=== PATIENT | female | born 1945 | race Caucasian/White ===

== ENCOUNTER 2022-03-10 09:19 | Inpatient (IN) | payer MEDICARE, OTHER ==
[2022-03-10] VITALS (10 sets, daily range): BP systolic 99–142; BP diastolic 35–79
[~2022-03-10] VITALS: Ht 152.4 cm; Wt 116.6 kg
[2022-03-10] MEDS ORDERED: methylPREDNISolone SOD SUCC 125 MG/2 ML VIAL IV ONE (09:30)
[2022-03-10] MEDS ORDERED: ALBUTEROL SULFATE 2.5 MG/3 ML NEBU NEB ONE (09:30)
[2022-03-10] MEDS ORDERED: IPRATROPIUM BROMIDE 0.5 MG/2.5 ML NEBU NEB ONE (09:30)
--- NOTE | 2022-03-10 09:30 | NUR ---
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 STATES RESP. SYMPTOMS STARTED LAST NIGHT. ER MD AT BEDSIDE FOR MSE.
[2022-03-10] MEDS ORDERED: ALBUTEROL SULFATE 2.5 MG/3 ML NEBU ONE (09:37)
[2022-03-10] MEDS ORDERED: IPRATROPIUM BROMIDE 0.5 MG/2.5 ML NEBU ONE (09:37)
[2022-03-10] MEDS ORDERED: levoFLOXacin 500 MG/D5W 100ML PIGGYBACK IV ONE (09:45)
[2022-03-10 09:56] LABS: ABG BASE EXCESS 2.9 mmol/L; ABG HCO3 27.9 mmol/L; ABG PCO2 44.4 mmHg (35.0-45.0); ABG PH 7.416 (7.350-7.450); ABG PO2 87.1 mmHg (75.0-100.0); ABG SITE RIGHT BRACHIAL; ABG TOTAL HEMOGLOBIN 12.4 G/dL (12.0-16.0); COHb 1.4 % (0.5-1.5); MetHb 0.3 % (0.0-1.5); O2Hb 94.9 % (94.0-97.0); VENT MODE SM
--- NOTE | 2022-03-10 10:00 | NUR ---
PT ON BREATHING TX WITH IMPROVED O2 SAT TO 98%. HR CONTINUES TO BE TACHY. COMPLAINTS OF BALTAZAR 8/10 PRESSURE LIKE STARTED THIS AM
[2022-03-10] MEDS ORDERED: methylPREDNISolone SOD SUCC 125 MG/2 ML VIAL ONE (10:18)
[2022-03-10 10:22] LABS: HEMATOCRIT 35.8 % (31.2-41.9); MEAN CORPUSCULAR HEMOGLOBIN 32.5 uug (24.7-32.8); MEAN CORPUSCULAR VOLUME 99.5 fL (75.5-95.3); PLATELET COUNT (AUTO) 156 K/uL (179-408)
[2022-03-10 10:34] LABS: CARBON DIOXIDE 25 mmol/L (21-32); CHLORIDE 101 mmol/L (98-107); CREATININE 1.2 mg/dL (0.6-1.3); GLUCOSE 170 mg/dL (74-106); POTASSIUM 4.1 mmol/L (3.5-5.1); UREA NITROGEN, BLOOD 21 mg/dL (7-18)
[2022-03-10 10:55] LABS: ETHANOL < 3 MG/DL (0-0)
[2022-03-10] MEDS ORDERED: DILTIAZEM HCL 25 MG IV IV ONE (11:00)
[2022-03-10] MEDS ORDERED: DILTIAZEM HCL IV 125 MG in IV DEXTROSE 5% 100 ML IV ONE (11:00)
[2022-03-10] MEDS ORDERED: IV NORMAL SALINE 1000 ML BAG IV ONE (11:00)
[2022-03-10] MEDS ORDERED: ACETAMINOPHEN 650 MG/20.3 ML LIQUID UDC PO ONE (11:00)
--- NOTE | 2022-03-10 12:01 | NUR ---
PT RESPONDED TO DILTIAZEM BOLUS AND DILYIAZEM GTT AT 5MG/HR. VS MORE STABLE AT THIS TIME.
[2022-03-10 12:11] LABS: *AMPHETAMINE, URINE NEGATIVE (NEGATIVE); *CANNABINOID, URINE NEGATIVE (NEGATIVE); *COCCAINE, URINE NEGATIVE (NEGATIVE); *OPIATE, URINE NEGATIVE (NEGATIVE); *PHENCYCLIDINE SCREEN,URINE NEGATIVE (NEGATIVE)
--- NOTE | 2022-03-10 13:00 | NUR ---
CARDIZEM GTT TITRATED TO 10 MG; HR AT 133 AFIB RVR
[2022-03-10 13:06] LABS: BILIRUBIN,DIRECT 0.2 mg/dL (0.0-0.2); BILIRUBIN,TOTAL 0.5 mg/dL (0.2-1.0)
--- NOTE | 2022-03-10 13:30 | NUR ---
SBAR TO MAMIE MEDELLIN COVERING FOR LADONNA MEDELLIN.
--- NOTE | 2022-03-10 14:00 | NUR ---
PT TRANSFERRED TO ICU WITH ACLS PROTOCOL.
[2022-03-10] MEDS ORDERED: levoFLOXacin 500 MG/D5W 500 MG in PREMIXED 1 EACH IV SCH (17:15)
[2022-03-10] MEDS ORDERED: MORPHINE SULFATE 2 MG/1 ML DISP.SYRIN IV PRN (17:15)
[2022-03-10] MEDS ORDERED: ONDANSETRON 4 MG/2 ML VIAL IV PRN (17:15)
[2022-03-10] MEDS ORDERED: ACETAMINOPHEN 325 MG TABLET PO PRN (17:15)
[2022-03-10] MEDS ORDERED: AMIODARONE HCL IV 150 MG in IV DEXTROSE 5% 100 ML IV ONE (18:00)
[2022-03-10] MEDS: MEROPENEM 1 G in IV NORMAL SALINE 100 ML IV SCH (18:18)
[2022-03-10] MEDS ORDERED: RAMI5CAP30 PO (18:30)
[2022-03-10] MEDS ORDERED: METO50TA16 PO (18:30)
[2022-03-10] MEDS ORDERED: HYDR-894 PO (18:30)
[2022-03-10] MEDS ORDERED: APIX5TAB PO (18:30)
[2022-03-10] MEDS ORDERED: RANO10003 PO (18:30)
[2022-03-10] MEDS ORDERED: FLUT200B IH (18:30)
[2022-03-10] MEDS ORDERED: NITR0.4T SL (18:33)
[2022-03-10] MEDS: FLUTICASONE/VILANTEROL 1 EACH BLST.W.DEV INH SCH (18:35)
[2022-03-10] MEDS: AMIODARONE HCL IV 450 MG in IV DEXTROSE 5% 250 ML IV PRN (18:36)
[2022-03-10] MEDS: ENOXAPARIN SODIUM 120 MG/0.8 ML SYRINGE SQ SCH (21:00)
[2022-03-10] MEDS ORDERED: GUAIFENESIN/DEXTROMETHORPHAN 5 ML UDC PO PRN (21:15)
[2022-03-10] MEDS: methylPREDNISolone SOD SUCC 40 MG/ML VIAL IV SCH (21:57)
[2022-03-10] MEDS: DOCUSATE SODIUM 100 MG CAPSULE PO SCH (21:57)
[2022-03-11] VITALS (24 sets, daily range): BP systolic 127–177; BP diastolic 62–119
[2022-03-11] MEDS: AMIODARONE HCL IV 450 MG in IV DEXTROSE 5% 250 ML IV PRN (03:31)
[2022-03-11] MEDS: LEVALBUTEROL HCL NEB 0.63 MG/3 ML NEBU NEB PRN (04:26)
[2022-03-11 05:11] LABS: HEMATOCRIT 31.6 % (31.2-41.9); MEAN CORPUSCULAR HEMOGLOBIN 32.8 uug (24.7-32.8); MEAN CORPUSCULAR VOLUME 94.9 fL (75.5-95.3); PLATELET COUNT (AUTO) 173 K/uL (179-408)
[2022-03-11 05:43] LABS: THYROID STIMULATING HORMONE 0.328 mIU/mL (0.358-3.740)
--- NOTE | 2022-03-11 06:00 | NUR ---
[id number] PT A/OX4 WITH STABLE VS. PT HAS BEEN RESTING QUIETLY. PT HAS BEEN A/OX4. PT HAS BEEN SLEPING OFF AND. IVS I/P VIA RIGHT ARM PICC-LINE. PT REQUESTED F/C TO BE TAKE OUT. PT VOIDING WELL (1200 TOTAL) HECTOR/CLR. F/C REMOVED. PT HAD SM BRN STOOL. SKIN CARE GIVEN(ASST). PT ABLE TO MOVE ALL EXTREMITIES EQUALLY. AM LABS DONE PT PT IS ALSO BLIND BUT FOLLOWS SIMPLE COMMDS WELL AND IS A/OX4. PT ENDORSED TO VIGNESH BULLARD IN STABLE COND. LUCIA MEDELLIN
[2022-03-11 06:01] LABS: ALANINE AMINOTRANSFERASE 43 U/L (14-59); ALKALINE PHOSPHATASE 87 U/L (50-136); ASPARTATE AMINOTRANSFERASE 26 U/L (15-37); BILIRUBIN,TOTAL 0.6 mg/dL (0.2-1.0); CARBON DIOXIDE 29 mmol/L (21-32); CHLORIDE 99 mmol/L (98-107); CHOLESTEROL 164 mg/dL (<200); CREATININE 1.3 mg/dL (0.6-1.3); GLUCOSE 245 mg/dL (74-106); HDL CHOLESTEROL 60 mg/dL (40-60); MAGNESIUM 1.8 mg/dL (1.8-2.4); PHOSPHOROUS 3.4 mg/dL (2.5-4.9); POTASSIUM 4.3 mmol/L (3.5-5.1); TOTAL PROTEIN, SERUM 7.1 g/dL (6.4-8.2); TRIGLYCERIDES 67 MG/DL (30-150); UREA NITROGEN, BLOOD 29 mg/dL (7-18)
[2022-03-11] MEDS: PANTOPRAZOLE SODIUM 40 MG TABLET.DR PO SCH (07:23)
[2022-03-11] MEDS: methylPREDNISolone SOD SUCC 40 MG/ML VIAL IV SCH ×3 (07:23→21:15)
[2022-03-11] MEDS: MEROPENEM 1 G in IV NORMAL SALINE 100 ML IV SCH ×2 (07:24→18:44)
[2022-03-11] MEDS ORDERED: DEXTROSE 50% 50 ML DISP.SYRIN IV PRN (08:00)
[2022-03-11] MEDS ORDERED: CYANOCOBALAMIN 1000 MCG/ML VIAL IM ONE (08:00)
[2022-03-11] MEDS: ENOXAPARIN SODIUM 120 MG/0.8 ML SYRINGE SQ SCH (08:45)
[2022-03-11] MEDS ORDERED: DILTIAZEM HCL CD 240 MG CAP.SR.24H PO SCH (09:45)
[2022-03-11] MEDS: FLUTICASONE/VILANTEROL 1 EACH BLST.W.DEV INH SCH (10:09)
[2022-03-11] MEDS: BLOOD SUGAR DIAGNOSTIC 1 EACH STRIP VI SCH ×3 (11:30→21:00)
[2022-03-11] MEDS: INSULIN REGULAR, HUMAN 300 UNIT/3 ML VIAL SQ PRN (13:40)
[2022-03-11] MEDS ORDERED: HYDR12.517 PO (13:56)
[2022-03-11] MEDS ORDERED: OSELTAMIVIR PHOSPHATE 75 MG CAPSULE PO SCH (21:00)
[2022-03-11] MEDS: DOCUSATE SODIUM 100 MG CAPSULE PO SCH (21:00)
[2022-03-11] MEDS: APIXABAN 5 MG TABLET PO SCH (21:17)
[2022-03-11] MEDS: MAGNESIUM SULFATE/D5W 100 ML IV SCH (22:51)
[2022-03-12] VITALS (16 sets, daily range): BP systolic 114–186; BP diastolic 62–112
[2022-03-12] MEDS: LEVALBUTEROL HCL NEB 0.63 MG/3 ML NEBU NEB PRN ×2 (00:10→04:07)
[2022-03-12] MEDS: MAGNESIUM SULFATE/D5W 100 ML IV SCH ×3 (00:32→01:46)
[2022-03-12] MEDS: INSULIN REGULAR, HUMAN 300 UNIT/3 ML VIAL SQ PRN ×3 (02:40→18:18)
[2022-03-12] MEDS ORDERED: LORAZEPAM 2 MG/1 ML VIAL IV ONE (02:45)
[2022-03-12 05:25] LABS: HEMATOCRIT 33.6 % (31.2-41.9); MEAN CORPUSCULAR HEMOGLOBIN 32.4 uug (24.7-32.8); MEAN CORPUSCULAR VOLUME 95.1 fL (75.5-95.3); PLATELET COUNT (AUTO) 206 K/uL (179-408)
[2022-03-12 05:35] LABS: ALANINE AMINOTRANSFERASE 64 U/L (14-59); ALKALINE PHOSPHATASE 86 U/L (50-136); ASPARTATE AMINOTRANSFERASE 65 U/L (15-37); BILIRUBIN,TOTAL 0.6 mg/dL (0.2-1.0); CARBON DIOXIDE 30 mmol/L (21-32); CHLORIDE 97 mmol/L (98-107); CREATININE 1.2 mg/dL (0.6-1.3); GLUCOSE 254 mg/dL (74-106); MAGNESIUM 3.2 mg/dL (1.8-2.4); PHOSPHOROUS 3.9 mg/dL (2.5-4.9); POTASSIUM 4.5 mmol/L (3.5-5.1); TOTAL PROTEIN, SERUM 7.2 g/dL (6.4-8.2); UREA NITROGEN, BLOOD 32 mg/dL (7-18)
--- NOTE | 2022-03-12 06:00 | NUR ---
[id number]--PT CONT TO BE A/OX3-4 BUT PT HAD BEEN VERY RESTLESS AND ANXIOUS THRU MOST OF THE NIGHT WANTING TO GET ON AND OFF THE BSC. PT HAD STOOL [id number] BRN. ECHO TILLMAN CONTACTED AND ORD 0.5MG OF ATIVAN X1. PT LATER BECAME SLIGHT LETHARGIC AND ATTEMPTED TO GET OOB. PT INFORMED THAT SHE MUST REST AND BSC REMOVED FOR SAFETY REASONS. PT IS A FALL RISK AND IS ALSO BLIND. PT ALSO HAD LABORED RESPS WITH COARSE SOUNDING EXPIRATORY WHEEZES.RTX CONTACTED AND GAVE RTX. LATER IN SHIFT STEAM BOX TENDER ECHO CONTACTED DUE TO PT HAVING S/S OF RESP DISTRESS. POX WENT DOWN TO 88%. STAT CXR AND ABG ORDERED. DR. QUARLES INFORMED OF PT'S COND. PT RESTING/SLEEPING QUIETLY IN BED NEAR END OF SHIFT BUT RESPS SEEM SLIGHT LABORED. IS AWARE. PT HAS R.ARM PICC LINE I/P. PT ALSO SOUNDED CONGESTED-LASIX 40MG IVP GIVEN -ORD BY ECHO TILLMAN. PT ALSO HAD MG LEVEL OF 1.8-MG 4GM RIDER/IVPBs ORDERED BY ROBBY TILLMAN. PT CONT IN STABLE BUT GUARDED COND. ABG RESULT CALLED TO -NO NEW ORDERS YET. ALSO BP WAS >160'S SYST. PRIMO DODGE AND MACHINE REPAIR PERSON INFORMED. NO NEW ORD. YET. PT ENDORSED TO VIGNESH GAITAN. AM LABS DONE ALSO. LUCIA MEDELLIN
[2022-03-12] MEDS ORDERED: FUROSEMIDE 40 MG/4 ML VIAL IV ONE (06:30)
[2022-03-12] MEDS ORDERED: FUROSEMIDE 40 MG/4 ML VIAL ONE (06:41)
[2022-03-12] MEDS: methylPREDNISolone SOD SUCC 40 MG/ML VIAL IV SCH ×3 (06:43→21:47)
[2022-03-12] MEDS: MEROPENEM 1 G in IV NORMAL SALINE 100 ML IV SCH ×2 (06:44→18:04)
[2022-03-12] MEDS: PANTOPRAZOLE SODIUM 40 MG TABLET.DR PO SCH ×2 (06:44→09:19)
[2022-03-12 07:30] LABS: ABG BASE EXCESS 0.3 mmol/L; ABG HCO3 27.9 mmol/L; ABG PCO2 59.3 mmHg (35.0-45.0); ABG PH 7.291 (7.350-7.450); ABG PO2 66.6 mmHg (75.0-100.0); ABG SITE RIGHT RADIAL; ABG TOTAL HEMOGLOBIN 12.3 G/dL (12.0-16.0); COHb 0.9 % (0.5-1.5); MetHb 0.3 % (0.0-1.5); O2Hb 90.8 % (94.0-97.0); VENT MODE Nasal Cannula 6L
[2022-03-12] MEDS: BLOOD SUGAR DIAGNOSTIC 1 EACH STRIP VI SCH ×4 (07:30→21:00)
--- NOTE | 2022-03-12 08:15 | NUR ---
Received patient from the off going nurse. Patient is on the traffic monitor specialist observed with on A-fib/RVR fluctuating rate of 100-110s, and elevated blood pressure. Patient is on O2 @ 5LPM via N/C; receiving steroid and inhaler and RT tolerated well. Patient is afebrile. Patient denies pain/discomfort at this time. Patient OOB to the commode, with multiple episodes soft stool Patient is stable and monitoring continues.
[2022-03-12] MEDS: FLUTICASONE/VILANTEROL 1 EACH BLST.W.DEV INH SCH (09:10)
[2022-03-12] MEDS: DILTIAZEM HCL CD 120 MG CAP.SR.24H PO SCH (09:12)
[2022-03-12] MEDS: LOSARTAN POTASSIUM 50 MG TABLET PO SCH (09:13)
[2022-03-12] MEDS: APIXABAN 5 MG TABLET PO SCH ×2 (09:15→21:00)
[2022-03-12] MEDS: OSELTAMIVIR PHOSPHATE 75 MG CAPSULE PO SCH ×2 (09:17→21:45)
[2022-03-12] MEDS: PROTEIN SUPPLEMENT (PROSTAT) 30 ML LIQUID PO SCH ×3 (09:30→18:05)
--- NOTE | 2022-03-12 19:15 | NUR ---
Report given to the assigned oncoming nurse. Patient left stable in bed.
[2022-03-12] MEDS: DOCUSATE SODIUM 100 MG CAPSULE PO SCH (21:44)
[2022-03-13] VITALS (17 sets, daily range): BP systolic 97–188; BP diastolic 25–141
[2022-03-13 05:32] LABS: HEMATOCRIT 34.3 % (31.2-41.9); MEAN CORPUSCULAR HEMOGLOBIN 32.2 uug (24.7-32.8); PLATELET COUNT (AUTO) 171 K/uL (179-408)
[2022-03-13 05:57] LABS: CREATININE 1.1 mg/dL (0.6-1.3); MAGNESIUM 2.6 mg/dL (1.8-2.4); PHOSPHOROUS 3.9 mg/dL (2.5-4.9); POTASSIUM 4.3 mmol/L (3.5-5.1)
[2022-03-13] MEDS: methylPREDNISolone SOD SUCC 40 MG/ML VIAL IV SCH ×2 (06:02→21:20)
[2022-03-13] MEDS: MEROPENEM 1 G in IV NORMAL SALINE 100 ML IV SCH ×3 (06:30→22:31)
[2022-03-13] MEDS: PANTOPRAZOLE SODIUM 40 MG TABLET.DR PO SCH (07:00)
[2022-03-13] MEDS: INSULIN REGULAR, HUMAN 300 UNIT/3 ML VIAL SQ PRN ×5 (07:39→21:26)
--- NOTE | 2022-03-13 07:39 | NUR ---
CLINICAL NOTE: LATE ENTRY: INSULIN DUELY WITNESSED AND GIVEN AT 03/12/2022 BUT CO-SIGNED NOW. PATIENT STABLE AND RESTING WELL IN BED. NO FEVER.
[2022-03-13] MEDS: BLOOD SUGAR DIAGNOSTIC 1 EACH STRIP VI SCH ×4 (07:43→21:25)
[2022-03-13 08:31] LABS: ABG BASE EXCESS 4.8 mmol/L; ABG HCO3 31.2 mmol/L; ABG PCO2 54.4 mmHg (35.0-45.0); ABG PH 7.376 (7.350-7.450); ABG PO2 92.7 mmHg (75.0-100.0); ABG SITE RIGHT RADIAL; ABG TOTAL HEMOGLOBIN 11.9 G/dL (12.0-16.0); COHb 0.9 % (0.5-1.5); MetHb 0.3 % (0.0-1.5); O2Hb 95.5 % (94.0-97.0); VENT MODE Nasal Cannula
[2022-03-13] MEDS: PROTEIN SUPPLEMENT (PROSTAT) 30 ML LIQUID PO SCH ×3 (08:35→17:00)
[2022-03-13] MEDS: OSELTAMIVIR PHOSPHATE 75 MG CAPSULE PO SCH ×2 (08:37→21:05)
[2022-03-13] MEDS: LOSARTAN POTASSIUM 50 MG TABLET PO SCH (08:39)
[2022-03-13] MEDS: DILTIAZEM HCL CD 120 MG CAP.SR.24H PO SCH (08:39)
[2022-03-13] MEDS: APIXABAN 5 MG TABLET PO SCH ×2 (08:40→21:04)
[2022-03-13] MEDS: FLUTICASONE/VILANTEROL 1 EACH BLST.W.DEV INH SCH (08:42)
[2022-03-13] MEDS: REMEDY ESSENTIAL ZINC PASTE 113 GM TOP SCH ×2 (09:22→21:27)
[2022-03-13] MEDS: AMLODIPINE 5 MG TABLET PO SCH (12:09)
[2022-03-13] MEDS ORDERED: hydrALAZINE HCL 20 MG/1 ML VIAL IV ONE (12:15)
--- NOTE | 2022-03-13 14:54 | NUR ---
Report given to Soren MEDELLIN. patient on 2L NC with some wheezing maintaining goal sats per order 88-92%. Informed Dr. Shabazz patient did not tolerate hydralazine prn. patient bp dropped and became short of breath with increased wheezing and some pain on exhalation breathing. patient in AFIB controlled. IV tight upper arm PICC.
--- NOTE | 2022-03-13 16:47 | NUR ---
PT ARRIVED AT THE UNIT VIA WHEELCHAIR. PT IS AMBULATORY WITH ASSIST. INSPIRATORY WHEEZING NOTED. PT ON 2L NC SATURATING 92%.VITAL ALL BELONGINGS LOGGED. call light on bedside. PICC LINE DRESSING CHANGED.
[2022-03-13] MEDS: DOCUSATE SODIUM 100 MG CAPSULE PO SCH ×2 (21:01→21:10)
[2022-03-14] VITALS: BP 114/90
[2022-03-14 04:30] VITALS: BP 132/71
[2022-03-14] MEDS: MEROPENEM 1 G in IV NORMAL SALINE 100 ML IV SCH ×3 (06:03→23:10)
[2022-03-14] MEDS: BLOOD SUGAR DIAGNOSTIC 1 EACH STRIP VI SCH ×4 (07:04→21:15)
[2022-03-14 07:47] LABS: HEMATOCRIT 31.9 % (31.2-41.9); MEAN CORPUSCULAR VOLUME 95.5 fL (75.5-95.3); PLATELET COUNT (AUTO) 151 K/uL (179-408)
[2022-03-14 08:04] LABS: BILIRUBIN,TOTAL 0.8 mg/dL (0.2-1.0); CREATININE 0.9 mg/dL (0.6-1.3); MAGNESIUM 2.5 mg/dL (1.8-2.4); POTASSIUM 4.5 mmol/L (3.5-5.1); TOTAL PROTEIN, SERUM 6.4 g/dL (6.4-8.2)
[2022-03-14] MEDS: methylPREDNISolone SOD SUCC 40 MG/ML VIAL IV SCH (09:13)
[2022-03-14] MEDS: DILTIAZEM HCL CD 120 MG CAP.SR.24H PO SCH (09:14)
[2022-03-14] MEDS: AMLODIPINE 5 MG TABLET PO SCH (09:15)
[2022-03-14] MEDS: LOSARTAN POTASSIUM 50 MG TABLET PO SCH (09:15)
[2022-03-14] MEDS: APIXABAN 5 MG TABLET PO SCH ×2 (09:18→21:09)
[2022-03-14] MEDS: PROTEIN SUPPLEMENT (PROSTAT) 30 ML LIQUID PO SCH ×3 (09:19→17:01)
[2022-03-14] MEDS: FLUTICASONE/VILANTEROL 1 EACH BLST.W.DEV INH SCH (09:19)
[2022-03-14] MEDS: OSELTAMIVIR PHOSPHATE 75 MG CAPSULE PO SCH ×2 (09:21→21:10)
[2022-03-14] MEDS: REMEDY ESSENTIAL ZINC PASTE 113 GM TOP SCH ×2 (09:25→21:20)
[2022-03-14 10:58] VITALS: BP 166/70
[2022-03-14 11:32] VITALS: BP 97/25
[2022-03-14] MEDS: INSULIN REGULAR, HUMAN 300 UNIT/3 ML VIAL SQ PRN ×3 (11:44→21:19)
[2022-03-14] MEDS: FUROSEMIDE 40 MG/4 ML VIAL IV SCH (13:38)
[2022-03-14 15:21] VITALS: BP 130/58
--- NOTE | 2022-03-14 19:24 | NUR ---
NO RONNY FROM BASELINE NOTED. PATIENT ALERT AND ORIENTED, VERBALIZES NEEDS AND FOLLOWS DIRECTIONS. LEGALLY BLIND BILATERAL. CONTINENT OF BOTH, USES BEDSIDE COMMODE WITH ASSIST. NO S/S OF HYPO/HYPERGLYCEMIA/HYPO/HTN NOTED. PATIENT ON IVATB THERAPY ORDERED WITH NO A/R NOTED. KRISTI M/L INFUSING WELL WITH SITE INTACT.
[2022-03-14 20:35] VITALS: BP 131/77
[2022-03-14] MEDS: DOCUSATE SODIUM 100 MG CAPSULE PO SCH (21:07)
[2022-03-15] VITALS (7 sets, daily range): BP systolic 97–161; BP diastolic 25–80
[2022-03-15] MEDS: LEVALBUTEROL HCL NEB 0.63 MG/3 ML NEBU NEB PRN ×2 (03:36→21:14)
[2022-03-15] MEDS: PANTOPRAZOLE SODIUM 40 MG TABLET.DR PO SCH (06:22)
--- NOTE | 2022-03-15 06:34 | NUR ---
Patient slept well, easy to arouse. Still c/o SOB, breathing tx administered with good effect. Needs assessed and attended to. Call light within easy reach.
[2022-03-15] MEDS: MEROPENEM 1 G in IV NORMAL SALINE 100 ML IV SCH ×3 (06:38→20:41)
[2022-03-15] MEDS: BLOOD SUGAR DIAGNOSTIC 1 EACH STRIP VI SCH ×4 (06:44→20:55)
[2022-03-15] MEDS: PROTEIN SUPPLEMENT (PROSTAT) 30 ML LIQUID PO SCH ×3 (08:00→17:27)
[2022-03-15] MEDS: FLUTICASONE/VILANTEROL 1 EACH BLST.W.DEV INH SCH (09:23)
[2022-03-15] MEDS: OSELTAMIVIR PHOSPHATE 75 MG CAPSULE PO SCH ×2 (09:23→20:43)
[2022-03-15] MEDS: DILTIAZEM HCL CD 120 MG CAP.SR.24H PO SCH (09:25)
[2022-03-15] MEDS: AMLODIPINE 5 MG TABLET PO SCH (09:26)
[2022-03-15] MEDS: FUROSEMIDE 40 MG/4 ML VIAL IV SCH (09:27)
[2022-03-15] MEDS: LOSARTAN POTASSIUM 50 MG TABLET PO SCH ×2 (09:27→20:43)
[2022-03-15] MEDS: APIXABAN 5 MG TABLET PO SCH ×2 (09:29→20:45)
[2022-03-15] MEDS: REMEDY ESSENTIAL ZINC PASTE 113 GM TOP SCH ×2 (09:39→20:45)
[2022-03-15] MEDS: INSULIN REGULAR, HUMAN 300 UNIT/3 ML VIAL SQ PRN ×3 (13:14→22:39)
--- NOTE | 2022-03-15 17:16 | NUR ---
Pt. is cooperative with meds, able to ambulate to commode. But gets tired and SOB with any movements. Shes good at keeping her self hydrated.
[2022-03-15] MEDS: DOCUSATE SODIUM 100 MG CAPSULE PO SCH (20:42)
[2022-03-16 00:18] VITALS: BP 137/62
[2022-03-16 04:28] VITALS: BP 147/76
[2022-03-16] MEDS: MEROPENEM 1 G in IV NORMAL SALINE 100 ML IV SCH ×3 (05:23→21:09)
[2022-03-16] MEDS: PANTOPRAZOLE SODIUM 40 MG TABLET.DR PO SCH (06:17)
[2022-03-16] MEDS: BLOOD SUGAR DIAGNOSTIC 1 EACH STRIP VI SCH ×4 (06:26→21:20)
[2022-03-16 07:19] LABS: HEMATOCRIT 29.5 % (31.2-41.9); MEAN CORPUSCULAR HEMOGLOBIN 33.4 uug (24.7-32.8); MEAN CORPUSCULAR VOLUME 94.9 fL (75.5-95.3); PLATELET COUNT (AUTO) 127 K/uL (179-408)
[2022-03-16 07:53] LABS: CREATININE 0.9 mg/dL (0.6-1.3); PHOSPHOROUS 2.6 mg/dL (2.5-4.9); POTASSIUM 3.5 mmol/L (3.5-5.1)
[2022-03-16 08:17] VITALS: BP 162/81
[2022-03-16] MEDS: LOSARTAN POTASSIUM 50 MG TABLET PO SCH ×2 (08:54→21:01)
[2022-03-16] MEDS: PROTEIN SUPPLEMENT (PROSTAT) 30 ML LIQUID PO SCH ×3 (08:54→16:47)
[2022-03-16] MEDS: APIXABAN 5 MG TABLET PO SCH ×2 (08:56→21:05)
[2022-03-16] MEDS: AMLODIPINE 5 MG TABLET PO SCH (08:57)
[2022-03-16] MEDS: DILTIAZEM HCL CD 120 MG CAP.SR.24H PO SCH (08:57)
[2022-03-16] MEDS: FUROSEMIDE 40 MG/4 ML VIAL IV SCH (08:57)
[2022-03-16] MEDS: OSELTAMIVIR PHOSPHATE 75 MG CAPSULE PO SCH ×2 (09:01→21:02)
[2022-03-16] MEDS: FLUTICASONE/VILANTEROL 1 EACH BLST.W.DEV INH SCH (09:02)
[2022-03-16] MEDS: REMEDY ESSENTIAL ZINC PASTE 113 GM TOP SCH ×2 (09:03→21:07)
[2022-03-16] MEDS: INSULIN REGULAR, HUMAN 300 UNIT/3 ML VIAL SQ PRN ×3 (09:16→21:23)
[2022-03-16] MEDS ORDERED: METOPROLOL TARTRATE 25 MG TABLET PO SCH (10:00)
[2022-03-16] MEDS ORDERED: ACETAzolamide SODIUM 500 MG VIAL IV ONE (10:00)
[2022-03-16] MEDS: METOPROLOL SUCCINATE XL 50 MG TAB.SR.24H PO SCH (11:39)
[2022-03-16 12:00] VITALS: BP 124/59
[2022-03-16 16:00] VITALS: BP 109/77
[2022-03-16 20:47] VITALS: BP 122/49
[2022-03-16] MEDS: DOCUSATE SODIUM 100 MG CAPSULE PO SCH (21:00)
[2022-03-17 00:29] VITALS: BP 118/72
[2022-03-17 04:10] VITALS: BP 139/62
[2022-03-17] MEDS: MEROPENEM 1 G in IV NORMAL SALINE 100 ML IV SCH (06:09)
[2022-03-17] MEDS: PANTOPRAZOLE SODIUM 40 MG TABLET.DR PO SCH (06:10)
[2022-03-17] MEDS: BLOOD SUGAR DIAGNOSTIC 1 EACH STRIP VI SCH ×2 (06:34→11:30)
[2022-03-17 08:37] VITALS: BP 157/87
[2022-03-17] MEDS ORDERED: FUROSEMIDE 40 MG TABLET PO SCH (09:00)
[2022-03-17] MEDS: LOSARTAN POTASSIUM 50 MG TABLET PO SCH (09:31)
[2022-03-17] MEDS: METOPROLOL SUCCINATE XL 50 MG TAB.SR.24H PO SCH (09:31)
[2022-03-17] MEDS: AMLODIPINE 5 MG TABLET PO SCH (09:32)
[2022-03-17] MEDS: APIXABAN 5 MG TABLET PO SCH (09:33)
[2022-03-17] MEDS: DILTIAZEM HCL CD 120 MG CAP.SR.24H PO SCH (09:33)
[2022-03-17] MEDS: PROTEIN SUPPLEMENT (PROSTAT) 30 ML LIQUID PO SCH ×2 (09:34→12:48)
[2022-03-17] MEDS: REMEDY ESSENTIAL ZINC PASTE 113 GM TOP SCH (09:36)
[2022-03-17] MEDS: FLUTICASONE/VILANTEROL 1 EACH BLST.W.DEV INH SCH (09:36)
[2022-03-17] MEDS: OSELTAMIVIR PHOSPHATE 75 MG CAPSULE PO SCH (09:38)
[2022-03-17 11:31] VITALS: BP 118/52
[2022-03-17] MEDS: INSULIN REGULAR, HUMAN 300 UNIT/3 ML VIAL SQ PRN (12:44)
--- NOTE | 2022-03-17 13:14 | NUR ---
pt alert oriented. no acute distress noted . no complain of pain. no sob noted. pt tolerated pt well. walk with fww with minimal assist.
--- NOTE | 2022-03-17 13:15 | NUR ---
Social Work consult was requested for a patient on medsurg to assess current living situation. Patient is 76-year-old blind female admitted to the hospital for COPD exacerbation. Patient is alert and oriented X4. Patient presents with anxious mood and congruent affect. Patient states her primary contact lens manufacturer is her close friend, Manuel ([phone]). Patient states that she lives in the [place] [id number] ([phone]). Patient states that she is not driving, has a white cane, and is receiving SSI. Patient denies a history of substance abuse. Patient denies a history of psychiatric diagnosis. Patient denies suicidal or homicidal ideation. Patient states that his plan for discharge is for a caser up at the [facility] to take her home to [address] [place] [address]. SW informed clinical case manager, Chris. marketing and public relations manager, Chris called the [facility] ([phone]) and confirmed that someone can pick her up today at discharge.
--- NOTE | 2022-03-17 13:16 | NUR ---
pt will be discharge today per cm. SW spoke and gave resources to the pt. pt verbalized understand of discharge and no complain [facility].
[2022-03-17] MEDS ORDERED: DILT120C87 PO (13:48)
[2022-03-17] MEDS ORDERED: LOSA50TA3 PO (13:48)
[2022-03-17] MEDS ORDERED: AMLO-212 PO (13:48)
[2022-03-17] MEDS ORDERED: FURO40TA5 PO (13:48)
--- NOTE | 2022-03-17 14:01 | NUR ---
pt is discharge. pt is greens picker by a field sales representative of [facility]. exitcare provided. LUKAS picc line was removed. all belongings accounted for.
== END 2022-03-17 14:00 | disposition home or self-care (01) | DRG 871 ==
LOC: ER 09:19 → CCU 13:55 → TELE3 03-13 16:46
PROVIDERS: ADMIT Internal Medicine; ATTEND Nurse Practitioner Acute Care
PROC: 02HV33Z Insertion of Infusion Device into Superior Vena Cava, Percutaneous Approach (ICD-10-PCS; principal; 2022-03-10)
PROC: B548ZZA Ultrasonography of Superior Vena Cava, Guidance (ICD-10-PCS; 2022-03-10)
DX: A41.9 Sepsis, unspecified organism (principal); G92.8 Other toxic encephalopathy; J10.08 Influenza due to other identified influenza virus with other specified pneumonia; N17.0 Acute kidney failure with tubular necrosis; J15.9 Unspecified bacterial pneumonia; J96.22 Acute and chronic respiratory failure with hypercapnia; J96.21 Acute and chronic respiratory failure with hypoxia; J44.1 Chronic obstructive pulmonary disease with (acute) exacerbation; D68.59 Other primary thrombophilia; Z68.43 Body mass index [BMI] 50.0-59.9, adult; I48.20 Chronic atrial fibrillation, unspecified; E87.20 Acidosis, unspecified; E87.1 Hypo-osmolality and hyponatremia; J44.0 Chronic obstructive pulmonary disease with (acute) lower respiratory infection; Z59.01 Sheltered homelessness; D69.6 Thrombocytopenia, unspecified; E53.8 Deficiency of other specified B group vitamins; E66.01 Morbid (severe) obesity due to excess calories; Z88.0 Allergy status to penicillin; Z87.891 Personal history of nicotine dependence; Z86.16 Personal history of COVID-19; Z88.5 Allergy status to narcotic agent; Z79.01 Long term (current) use of anticoagulants; H54.8 Legal blindness, as defined in USA; I25.10 Atherosclerotic heart disease of native coronary artery without angina pectoris; D75.89 Other specified diseases of blood and blood-forming organs; Z20.822 Contact with and (suspected) exposure to COVID-19; Z74.09 Other reduced mobility; I11.9 Hypertensive heart disease without heart failure; R73.9 Hyperglycemia, unspecified; F29 Unspecified psychosis not due to a substance or known physiological condition
CPT/HCPCS: 36415; 36569; 36600; 71045; 83605; 83735; 84100; 84443; 84484; 85025; 87040; 87400; 93005; 93307; 94640; A4663; G0378; G0480; J0282; J0360; J1120; J1650; J1815; J1940; J1956; J2060; J2185; J2920; J2930; J3420; J3475; J3490; J3590; J7040; J7050; J7614; U0003